=== PATIENT | female | born 1950 | race Caucasian/White ===

== ENCOUNTER 2020-03-01 07:42 | Emergency (ER) | payer OTHER ==
[~2020-03-01] VITALS: Ht 170.2 cm; Wt 76.7 kg
[2020-03-01 07:48] VITALS: BP 168/85
[2020-03-01] MEDS ORDERED: KETOROLAC TROMETH 30 MG/ML 1ML VIAL IM ONE (08:30)
[2020-03-01] MEDS ORDERED: HYDROcodone-ACET 7.5/325MG TAB PO ONE (08:30)
== END 2020-03-01 09:04 | disposition home or self-care (01) ==
LOC: ER 07:42
DX: M54.41 Lumbago with sciatica, right side (principal); E11.9 Type 2 diabetes mellitus without complications; E78.5 Hyperlipidemia, unspecified; I10 Essential (primary) hypertension
CPT/HCPCS: 96372; 99283; J1885

== ENCOUNTER 2020-03-06 05:01 | Emergency (ER) | payer OTHER ==
[~2020-03-06] VITALS: Ht 167.6 cm; Wt 77.1 kg
[2020-03-06] MEDS ORDERED: KETOROLAC TROMETH 60MG/2ML VIAL IM ONE (08:00)
[2020-03-06] MEDS ORDERED: HYDROcodone-ACET 7.5/325MG TAB PO ONE (08:00)
[2020-03-06 08:48] VITALS: BP 175/78
== END 2020-03-06 09:00 | disposition home or self-care (01) ==
LOC: ER 05:01
DX: M48.061 Spinal stenosis, lumbar region without neurogenic claudication (principal); E11.9 Type 2 diabetes mellitus without complications; E78.5 Hyperlipidemia, unspecified; I10 Essential (primary) hypertension; M43.16 Spondylolisthesis, lumbar region; M54.16 Radiculopathy, lumbar region
CPT/HCPCS: 72131; 96372; 99284; J1885